=== PATIENT | female | born 1955 | race Caucasian/White ===

== ENCOUNTER 2017-06-06 13:04 | Outpatient (CLI) | payer OTHER ==
--- NOTE | 2017-06-07 14:29 | Mammography Report ---
DIGITAL SCREENING MAMMOGRAM: 06/06/2017 CLINICAL INDICATION: A 62-year-old with history of late childbearing, for screening. COMPARISON: Films from [place], [place] dated 07/08/2012, 07/05/2011, 04/17/2010. TECHNIQUE: Routine CC and MLO projections were obtained of the breasts. FINDINGS: The breasts demonstrate scattered fibroglandular densities bilaterally. Coarse and punctat e, typically benign calcifications are present. No suspicious masses, clustered microcalcifications, or regions of architectural distortion are identified. IMPRESSION: BENIGN FINDINGS. RECOMMENDATION: ROUTINE ANNUAL SCREENING UNLESS OTHERWISE CLINICALLY INDICATED. BIRADS CATEGORY 2-BENIGN FINDINGS. STANDARD QUALIFYING STATEMENTS 1. This examination was reviewed with the aid of Computer-Aided Detection (CAD). 2. A negative or benign imaging report should not delay biopsy if clinically suspicious findings are present. Consider surgical consultation if warranted. More than 5% of cancers are not identified by i maging. 3. Dense breasts may obscure an underlying neoplasm. JOB #: [id number] EXT JOB #:[id number]
== END 2017-06-06 13:05 | disposition home or self-care (01) ==
LOC: DI 13:04
PROVIDERS: ATTEND Internal Medicine
DX: Z12.31 Encounter for screening mammogram for malignant neoplasm of breast (principal)
CPT/HCPCS: 77067

== ENCOUNTER 2018-12-14 14:44 | Emergency (ER) | payer OTHER ==
[2018-12-14 14:54] VITALS: BP 150/85
[2018-12-14] MEDS ORDERED: predniSONE 20 MG TABLET PO STA (15:01)
[2018-12-14] MEDS ORDERED: cephALEXin 250 MG CAPSULE PO STA (15:01)
--- NOTE | 2018-12-14 15:04 | ED Physician Documentation ---
PD HPI SKIN - Stated complaint Stated Complaint: INSECT BITE - Chief complaint Chief Complaint: Wound - History obtained from History obtained from: Patient - History of Present Illness Timing - onset: Other (She thinks she was stung by an insect to the back of the right calf 3 days ago with progressive redness and pain there. No fevers or chills. She is been taking topical Benadryl and oral Benadryl without relief.) Review of Systems Constitutional: reports: Reviewed and negative Nose: reports: Reviewed and negative Throat: reports: Reviewed and negative PD PAST MEDICAL HISTORY - Present Medications Home Medications: Ambulatory Orders Medication Instructions Recorded Confirmed Cephalexin [Keflex] 500 mg PO Q6H #28 capsule 12/14/18 Citalopram [CeleXA] 20 mg PO DAILY 12/14/18 12/14/18 Fluticasone [Flonase] 1 sprays PAULINA BID 12/14/18 12/14/18 Levothyroxine [Synthroid] 75 mcg PO QDAC 12/14/18 12/14/18 Pantoprazole [Protonix] 40 mg PO DAILY 12/14/18 12/14/18 predniSONE [Deltasone] 60 mg PO DAILY 5 Days tablet 12/14/18 - Allergies Allergies/Adverse Reactions: Allergies Allergy/AdvReac Type Severity Reaction Status Date / Time Sulfa (Sulfonamide Allergy Hives Verified 12/14/18 14:54 Antibiotics) erythromycin base AdvReac Emesis Verified 12/14/18 14:54 PD ED PE NORMAL - Vitals Vital signs reviewed: Yes - General General: Alert and oriented X 3, No acute distress - Extremities Extremities: Other (Well demarcated area of redness to the back of the right calf measuring about 4-5 cm in diameter.) - Neuro Neuro: Alert and oriented X 3, Normal speech Results - Vitals Vitals: Vital Signs - 24 hr 12/14/18 14:51 Temperature 35.6 C L Heart Rate 73 Respiratory 12 Rate Blood Pressure 150/85 H O2 Saturation 96 Oxygen O2 Source Room air Departure - Departure Disposition: 01 Home, Self Care Clinical Impression: Infected insect bite Qualifiers: Encounter type: initial encounter Qualified Code(s): W57.XXXA - Bitten or stung by nonvenomous insect and other nonvenomous arthropods, initial encounter Condition: Good Record reviewed to determine appropriate education?: Yes Instructions: ED Infec Skin Cellulitis Prescriptions: Cephalexin [Keflex] 500 mg PO Q6H #28 capsule predniSONE [Deltasone] 60 mg PO DAILY 5 Days tablet Comments: Return if not better in 48 hours, anytime if worse or if you develop a fever. Follow-up with your doctor next week regardless.
== END 2018-12-14 15:18 | disposition home or self-care (01) ==
LOC: ED 14:44
DX: S80.861A Insect bite (nonvenomous), right lower leg, initial encounter (principal); L08.9 Local infection of the skin and subcutaneous tissue, unspecified; W57.XXXA Bitten or stung by nonvenomous insect and other nonvenomous arthropods, initial encounter
CPT/HCPCS: 99283; A9270; J7512

== ENCOUNTER 2019-04-09 10:56 | Outpatient (CLI) | payer OTHER ==
--- NOTE | 2019-04-09 12:25 | Mammography Report ---
Reason: ROUTINE MAMMO Procedure Date: 04/09/2019 Accession Number: [id number] / [id number] Procedure: MUSTAPHA - Screening Mammo w/Dexter CPT Code: FULL RESULT: EXAM: Screening Mammo w/Dexter DATE: 04/09/2019 11:50 AM CLINICAL HISTORY: Screening mammogram TECHNIQUE: (B) - Bilateral CC and MLO views were obtained. COMPARISON: 06/06/2017 PARENCHYMAL PATTERN: (A) - The breasts demonstrate scattered fibroglandular densities bilaterally. FINDINGS: No significant interval change. There are no suspicious masses, calcifications, or areas of distortion. An intramammary lymph node upper outer left breast is more apparent due to increasing fatty replacement of the breast tissue. IMPRESSION: Negative examination. BI-RADS category 1. RECOMMENDATION: (ANNUAL) - Recommend routine annual screening mammography. BI-RADS CATEGORY: (1) - Negative. STANDARD QUALIFYING STATEMENTS: 1. This examination was not reviewed with the aid of Computer-Aided Detection (CAD). 2. A negative or benign imaging report should not preclude biopsy if clinically suspicious findings are present. 3. Dense breasts may obscure an underlying neoplasm. 4. This examination was reviewed with the aid of 3D breast imaging (tomosynthesis).
== END 2019-04-09 10:57 | disposition home or self-care (01) ==
LOC: DI 10:56
DX: Z12.31 Encounter for screening mammogram for malignant neoplasm of breast (principal)
CPT/HCPCS: 77063; 77067

== ENCOUNTER 2019-04-22 09:36 | Outpatient (CLI) | payer OTHER ==
--- NOTE | 2019-04-22 13:44 | Ultrasound Report ---
Reason: MASS OF CHEST WALL Procedure Date: 04/22/2019 Accession Number: [id number] / [id number] Procedure: US - Chest CPT Code: FULL RESULT: EXAM: US CHEST EXAM DATE: 04/22/2019 10:30 AM. CLINICAL HISTORY: Chief complaint of suprasternal notch mass. COMPARISON: None. TECHNIQUE: Real-time ultrasound was performed of the upper midline chest wall with special attention given to the suprasternal notch. FINDINGS: No mass or other abnormality. IMPRESSION: Negative examination. If there remains strong clinical suspicion for palpable mass, the next imaging option would be CT chest with IV contrast. RADIA
== END 2019-04-22 09:37 | disposition home or self-care (01) ==
LOC: DI 09:36
PROVIDERS: ATTEND Nurse Practitioner Family
DX: R22.2 Localized swelling, mass and lump, trunk (principal)
CPT/HCPCS: 76604

== ENCOUNTER 2019-07-03 10:33 | Outpatient (CLI) | payer OTHER ==
--- NOTE | 2019-07-06 13:49 | DEXA Report ---
Reason: OSTEOPOROSIS Procedure Date: 07/03/2019 Accession Number: [id number] / [id number] Procedure: DEX - Dexa Spine and/or Hip CPT Code: Final Report FULL RESULT: EXAM: Dexa Spine and/or Hip DATE: 07/03/2019 10:00 AM CLINICAL HISTORY: Postmenopausal female TECHNIQUE: Dual energy x-ray absorptiometry (DXA) was performed on a [employer] System. Regions measured are the AP Spine, femoral neck, and if needed forearm. COMPARISON: None. In accordance with the International Society for Clinical Densitometry (ISCD) guidelines, data from previous exams may be reanalyzed using current recommendations and techniques. This is done to allow a more accurate basis for comparison with the current study. FINDINGS: The data for the lumbar spine is as follows: BMD (g/cm/cm) T-SCORE Z-SCORE REGION L1 1.008 -1.0 0.8 L2 1.112 -0.7 1.1 L3 1.056 -1.2 0.6 L4 1.086 -0.9 0.9 TOTAL 1.066 -0.9 0.9 NOTE: All evaluable vertebrae are used for classification The data for the hip is as follows: BMD (g/cm/cm) T-SCORE Z-SCORE REGION Neck 0.871 -1.2 0.4 TOTAL 0.933 -0.6 0.8 NOTE: The femoral neck or total proximal femur, whichever is lowest, is used for classification. IMPRESSION: THE WHO CLASSIFICATION BASED ON THE INTERNATIONAL REFERENCE STANDARD IS OSTEOPENIA, REFERENCE LEFT FEMORAL NECK.. THE FRACTURE RISK IS INCREASED. RECOMMENDATION: Patients with diagnosis of osteoporosis or osteopenia should have regular bone mineral density assessment. For those eligible for Medicare, routine testing is allowed once every 2 years. Testing frequency can be increased for patients who have rapidly progressing disease or for those who are receiving medical therapy to restore bone mass. COMMENT: World Health Organization (WHO) definitions for osteoporosis and osteopenia: NORMAL BMD: T-score at -1.0 or higher, fracture risk is low OSTEOPENIA BMD: T-score between -1.0 and -2.5, fracture risk is increased. OSTEOPOROSIS BMD: T-score at -2.5 or lower, fracture risk is high. National Osteoporosis Foundation recommends: 1. Obtain adequate dietary calcium (at least 1200 mg per day) and vitamin D (400-800 international units per day). 2. Participate, as appropriate, in regular weightbearing and muscle-strengthening exercise. 3. Avoid tobacco use and reduce alcohol and caffeine intake. 4. For more detailed information see the website at www.NOF.org.
== END 2019-07-03 10:34 | disposition home or self-care (01) ==
LOC: DI 10:33
PROVIDERS: ATTEND Internal Medicine
DX: Z13.820 Encounter for screening for osteoporosis (principal); M85.88 Other specified disorders of bone density and structure, other site; Z78.0 Asymptomatic menopausal state
CPT/HCPCS: 77080

== ENCOUNTER 2020-03-15 12:40 | Outpatient (CLI) | payer OTHER ==
--- NOTE | 2020-03-15 14:59 | XRAY Report ---
PROCEDURE: Hips 2V BILAT INDICATIONS: PAIN IN RT HIP TECHNIQUE: 3 views of the hip were acquired. COMPARISON: None. FINDINGS: Bones: No fractures or dislocations. No suspicious bony lesions. The visualized pelvic ring appear s intact. There is mild symmetric hip and sacroiliac joints degeneration bilaterally. Soft tissues: No suspicious soft tissue calcifications or masses. 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 Reviewed by: Natalia Gilliland MD on 03/15/2020 2:57 PM PDT Approved by: Natalia Gilliland MD on 03/15/2020 2:57 PM PDT Station ID: [id number]
== END 2020-03-15 12:41 | disposition home or self-care (01) ==
LOC: DI 12:40
PROVIDERS: ATTEND Family Medicine
DX: M16.0 Bilateral primary osteoarthritis of hip (principal); M47.818 Spondylosis without myelopathy or radiculopathy, sacral and sacrococcygeal region
CPT/HCPCS: 73521

== ENCOUNTER 2020-10-28 10:44 | Outpatient (CLI) | payer BC ==
--- NOTE | 2020-11-01 09:05 | DEXA Report ---
PROCEDURE: Dexa Spine and/or Hip INDICATIONS: OSTEOPOROSIS TECHNIQUE: Dual energy x-ray absorptiometry (DXA) was performed on a [employer] System. Regions measur ed are the AP Spine, femoral neck, and if needed forearm. COMPARISON: 07/03/2019 FINDINGS: Lumbar Spine: Bone Mineral Density 0.993 g/cm/cm,T score -1.6, osteopenia, change from previous -6.5%, significa nt Left Hip: Bone Mineral Density 0.877 g/cm/cm,T score -1.0, normal, change from previous -6.0%, significant Left Femoral Neck: Bone Mineral Density 0.823 g/cm/cm, T score -1.5, osteopenia, (T score greater or equal to -1.0: NORMAL) (T score from -1.1 to -2.4: OSTEOPENIA) (T score less than or equal to -2.5 to: OSTEOPOROSIS) Impression: 1. Significant interval decrease in bone mineral density compared to the prior study. 2. Osteopenia elevates the patient's 10 year fracture risk. Patients with diagnosis of osteoporosis or osteopenia should have regular bone mineral density assess ment. For those eligible for Medicare, routine testing is allowed once every 2 years. Testing frequ ency can be increased for patients who have rapidly progressing disease or for those who are receivin g medical therapy to restore bone mass. Reviewed by: Helena Duffy MD on 10/28/2020 11:08 AM MICHAEL Approved by: Helena Duffy MD on 10/28/2020 11:08 AM MICHAEL Station ID: [id number]
== END 2020-10-28 10:45 | disposition home or self-care (01) ==
LOC: DI 10:44
PROVIDERS: ATTEND Internal Medicine
DX: Z13.820 Encounter for screening for osteoporosis (principal); M85.89 Other specified disorders of bone density and structure, multiple sites

== ENCOUNTER 2020-10-28 10:46 | Outpatient (CLI) | payer BC ==
--- NOTE | 2020-10-31 12:23 | Mammography Report ---
BILATERAL DIGITAL SCREENING MAMMOGRAM 3D/2D: 10/28/2020 CLINICAL: Routine screening. Comparison is made to exams dated: 04/09/2019 mammogram and 06/06/2017 mammogram - [facility]. There are scattered fibroglandular elements in both breasts. No significant masses, calcifications, or other findings are seen in either breast. There has been no significant interval change. IMPRESSION: NEGATIVE There is no mammographic evidence of malignancy. A 1 year screening mammogram is recommended. This exam was interpreted at Station ID: [id number]. NOTE: For mammograms, a report in lay terms will be sent to the patient. Approximately 15% of breast malignancies will not be visualized mammographically. In the management of a palpable breast mass, a negative mammogram must not discourage biopsy of a clinically suspicious lesion. Electronically Signed By: Thad Robles M.D. ar/penrad:10/28/2020 11:44:43 ACR BI-RADS Category 1: Negative 3341F PARENCHYMAL PATTERN: (A) - The breast(s) demonstrate(s) scattered fibroglandular densities. BI-RADS CATEGORY: (1) - 1 RECOMMENDATION: (ANNUAL) - Recommend routine annual screening mammography. [id number] 1 year screening LATERALITY: (B)
== END 2020-10-28 10:47 | disposition home or self-care (01) ==
LOC: DI 10:46
PROVIDERS: ATTEND Internal Medicine
DX: Z12.31 Encounter for screening mammogram for malignant neoplasm of breast (principal)

== ENCOUNTER 2021-10-09 12:39 | Outpatient (CLI) | payer MEDICARE, OTHER ==
--- NOTE | 2021-10-09 18:09 | MRI Report ---
PROCEDURE: Ankle RT W/O INDICATIONS: RIGHT PLANTER FASCIITIS TECHNIQUE: Noncontrast Magnetic Resonance Imaging (MRI) of the ankle/hindfoot was performed utilizing the follow ing sequences on a 3.0 Amie Siemens MRI: sagittal T1 spin echo, sagittal STIR, axial PD fast spin ec ho, axial T2 fast spin echo with fat saturation, coronal T2 spin echo with fat saturation, and PD fas t spin echo with fat saturation. COMPARISON: None. Findings: Bones: No evidence of fracture, infiltration, ischemia or contusion. Muscles: No evidence of muscular atrophy or edema. Anterior tibiofibular ligament: Intact. Posterior tibiofibular ligament: Intact. Calcaneofibular ligament: Intact. Talar dome: No significant abnormality. Anterior talofibular ligament: Intact. Posterior talofibular ligament: Intact. Deltoid ligament: Intact. Peroneal tendons: No evidence of tear or tenosynovitis. Tibialis posterior: No evidence of tear or tenosynovitis. Flexor digitorum: No evidence of tear or tenosynovitis. Flexor hallucis longus: No evidence of tear or tenosynovitis. Sinus Tarsi: No mass or fibrosis. T2 hyperintense signal is seen. Achilles tendon: Intact. Joint effusion: Small tibiotalar joint effusion. Plantar fascia: No evidence of tear or inflammation. IMPRESSION: 1. Edema within the sinus Tarsi without evidence of fibrosis or mass. 2. Small tibiotalar joint effusion. 3. No evidence of plantar fasciitis or tear. Reviewed by: Edinson Mcgrath MD on 10/09/2021 6:08 PM PDT Approved by: Edinson Mcgrath MD on 10/09/2021 6:08 PM PDT Station ID: [id number]
== END 2021-10-09 12:40 | disposition home or self-care (01) ==
LOC: DI 12:39
PROVIDERS: ATTEND Physician Assistant
DX: M72.2 Plantar fascial fibromatosis (principal); M25.471 Effusion, right ankle; R93.6 Abnormal findings on diagnostic imaging of limbs; R93.89 Abnormal findings on diagnostic imaging of other specified body structures

== ENCOUNTER 2022-10-23 13:46 | Outpatient (CLI) | payer MEDICARE, OTHER ==
[2022-10-23 14:00] LABS: BASOPHILS % (AUTO) 0.5 %; EOSINOPHILS # (AUTO) 0.2 10^3/uL (0.0-0.7); EOSINOPHILS % (AUTO) 3.6 %; HCT - HEMATOCRIT 39.1 % (37.0-47.0); HGB - HEMOGLOBIN 12.5 g/dL (12.0-16.0); LYMPHOCYTES # (AUTO) 1.7 10^3/uL (1.5-3.5); LYMPHOCYTES % (AUTO) 30.1 %; MEAN CORPUSCULAR HEMOGLOBIN 28.7 pg (27.0-31.0); MEAN CORPUSCULAR VOLUME 89.9 fL (81.0-99.0); MEAN PLATELET VOLUME 9.3 fL (7.9-10.8); MONOCYTES # (AUTO) 0.6 10^3/uL (0.0-1.0); MONOCYTES % (AUTO) 9.5 %; NEUTROPHILS # (AUTO) 3.3 10^3/uL (1.5-6.6); NEUTROPHILS % (AUTO) 56.1 %; PLT - PLATELET COUNT 437 10^3/uL (130-450); RED BLOOD COUNT 4.35 10^6/uL (4.20-5.40); RED CELL DISTRIBUTION WIDTH 12.3 % (12.0-15.0); WHITE BLOOD COUNT 5.8 x10^3/uL (4.8-10.8)
[2022-10-23 14:22] LABS: ALBUMIN 4.1 g/dL (3.2-5.5); ALBUMIN/GLOBULIN RATIO 1.3 (1.0-2.2); ALKALINE PHOSPHATASE 63 IU/L (42-121); ALT ALANINE AMINOTRANSFERASE 19 IU/L (10-60); AST ASPARTATE AMINOTRANSFERASE 17 IU/L (10-42); BILIRUBIN,TOTAL 0.6 mg/dL (0.2-1.0); BUN - BLOOD UREA NITROGEN 12 mg/dL (6-20); CALCIUM 9.7 mg/dL (8.5-10.3); CARBON DIOXIDE - CO2 29 mmol/L (21-32); CHLORIDE 97 mmol/L (101-111); CHOL/HDL RATIO 4.1 (<4.4); CHOLESTEROL 273 mg/dL; CREATININE 0.6 mg/dL (0.4-1.0); GFR - MDRD 99 (>89); GLUCOSE 95 mg/dL (70-100); HDL CHOLESTEROL 66 mg/dL; LDL CHOLESTEROL,CALCULATED 186 mg/dL; LDL/HDL RATIO 2.8 (<4.4); POTASSIUM 4.3 mmol/L (3.5-5.0); SODIUM 134 mmol/L (135-145); TOTAL PROTEIN 7.3 g/dL (6.7-8.2); TRIGLYCERIDES 107 mg/dL; VLDL CHOLESTEROL 21 mg/dL
== END 2022-10-23 13:47 | disposition home or self-care (01) ==
LOC: LAB 13:46
PROVIDERS: ATTEND Internal Medicine
DX: E03.9 Hypothyroidism, unspecified (principal); E78.5 Hyperlipidemia, unspecified; Z79.899 Other long term (current) drug therapy
CPT/HCPCS: 36415; 80053; 80061; 83721; 84443; 85025

== ENCOUNTER 2022-12-27 10:13 | Outpatient (CLI) | payer MEDICARE, OTHER ==
--- NOTE | 2022-12-28 09:09 | Mammography Report ---
BILATERAL DIGITAL SCREENING MAMMOGRAM 3D/2D: 12/27/2022 CLINICAL: Routine screening. Comparison is made to exams dated: 10/28/2020 mammogram, 04/09/2019 mammogram, 06/06/2017 mammogram - [facility], and 07/08/2012 mammogram - [facility]. There are scattered areas of fibroglandular density in both breasts (category b / 25%-50% glandular t issue). No significant masses, calcifications, or other findings are seen in either breast. There has been no significant interval change. IMPRESSION: NEGATIVE There is no mammographic evidence of malignancy. A 1 year screening mammogram is recommended. Based on the Tyrer Cuzick model (a risk assessment model) the patients lifetime risk is 6.5% and her 10 year risk is 3.6%. According to the ACR, ACS, and NCCN guidelines, an annual breast MRI exam marbella g with mammogram is recommended if the patients lifetime risk is 20% or greater. This exam was interpreted at Station ID: [id number]. NOTE: For mammograms, a report in lay terms will be sent to the patient. Approximately 15% of breast malignancies will not be visualized mammographically. In the management of a palpable breast mass, a negative mammogram must not discourage biopsy of a clinically suspicious lesion. Electronically Signed By: Regis patel/cm:12/27/2022 11:57:41 letter sent: No_Letter ACR BI-RADS Category 1: Negative 3341F PARENCHYMAL PATTERN: (A) - The breast(s) demonstrate(s) scattered fibroglandular densities. BI-RADS CATEGORY: (1) - 1 Mammogram [id number] 1 year screening LATERALITY: (B)
== END 2022-12-27 10:14 | disposition home or self-care (01) ==
LOC: DI 10:13
PROVIDERS: ATTEND Internal Medicine
DX: Z12.31 Encounter for screening mammogram for malignant neoplasm of breast (principal)

== ENCOUNTER 2022-12-27 10:13 | Outpatient (CLI) | payer MEDICARE, OTHER ==
--- NOTE | 2022-12-27 16:43 | DEXA Report ---
PROCEDURE: Dexa Spine and/or Hip INDICATIONS: POST MENOPAUSAL TECHNIQUE: Dual energy x-ray absorptiometry (DXA) was performed on a [employer] System. Regions measur ed are the AP Spine, femoral neck, and if needed forearm. COMPARISON: 10/28/2020, 07/03/2019 FINDINGS: Lumbar Spine: Bone Mineral Density 0.96 g/cm/cm,T score -1.9. Osteopenia Left Femoral Neck: Bone Mineral Density 0.84 g/cm/cm, T score -1.4. Osteopenia Impression: By WHO criteria, this patient has osteopenia of the lumbar spine and left femoral neck. Patients with diagnosis of osteoporosis or osteopenia should have regular bone mineral density assess ment. For those eligible for Medicare, routine testing is allowed once every 2 years. Testing frequ ency can be increased for patients who have rapidly progressing disease or for those who are receivin g medical therapy to restore bone mass. Reviewed by: Crystal Quiroz MD on 12/27/2022 4:41 PM PDT Approved by: Crystal Quiroz MD on 12/27/2022 4:41 PM PDT Station ID: [id number]
== END 2022-12-27 10:14 | disposition home or self-care (01) ==
LOC: DI 10:13
PROVIDERS: ATTEND Internal Medicine
DX: M85.89 Other specified disorders of bone density and structure, multiple sites (principal)